=== PATIENT | male | born 1970 | race Two or more races ===

== ENCOUNTER 2018-02-10 11:42 | Emergency (ER) | payer SELFPAY ==
[~2018-02-10] VITALS: Ht 167.6 cm; Wt 68.0 kg
--- NOTE | 2018-02-10 11:50 | NUR ---
AAOX3, CAME TO ER C/O WORSENING R CALF RADIATES TO R POPLITEAL PAIN S/P TRIPPED X 1 WEEK AGO. CMS WNL. RR IS EVEN AND UNLABORED WITH NAD NOTED. AWAITING MD FOR EVAL.
[2018-02-10 11:53] VITALS: BP 141/74
[2018-02-10] MEDS ORDERED: HYDROCODONE/APAP 5/325MG 1 EACH TABLET ONE (12:28)
[2018-02-10] MEDS ORDERED: HYDROCODONE/APAP 5/325MG 1 EACH TABLET PO ONE (12:30)
== END 2018-02-10 13:50 | disposition home or self-care (01) ==
LOC: ER 11:43
DX: S86.811A Strain of other muscle(s) and tendon(s) at lower leg level, right leg, initial encounter (principal); X50.1XXA Overexertion from prolonged static or awkward postures, initial encounter; Y93.39 Activity, other involving climbing, rappelling and jumping off; Y92.89 Other specified places as the place of occurrence of the external cause; Y99.8 Other external cause status
CPT/HCPCS: 93971; 99284; A4606; Z7610